=== PATIENT | female | born 1985 | race Caucasian/White ===

== ENCOUNTER 2019-03-19 12:06 | Inpatient (IN) | payer OTHER ==
--- NOTE | 2019-03-19 12:27 | PDOC ---
Rapid Medical Evaluation Chief Complaint: Pain, Acute Time Seen by Provider: 03/19/19 12:25 Medical Evaluation: Allergies Allergy/AdvReac Type Severity Reaction Status Date / Time almond Allergy Unknown Verified 03/19/19 12:24 03/19/19 12:25 I have performed a brief in-person evaluation of this patient. The patient presents with a chief complaint of: right flank with nausea and vomiting since yesterday. Took tylenol for pain w/p improvement. Say PCP yesterday who placed her on Macrobid Abx. Haven't had menses for a year due to nexplanon Pertinent physical exam findings: A&O x 3 I have ordered the following: CBC,CMP, hcg, UA, Ucx, spiral CT The patient will proceed to the ED for further evaluation. Discharge Disposition - Diagnosis Right flank pain - Discharge Dispostion Condition at time of disposition: Stable - Referrals - Patient Instructions - Post Discharge Activity
[2019-03-19] MEDS ORDERED: SODIUM CHLORIDE 1,000 ML IV STA (12:32)
--- NOTE | 2019-03-19 12:42 | PDOC ---
History of Present Illness - General Chief Complaint: Pain, Acute Stated Complaint: VOMITING Time Seen by Provider: 03/19/19 12:25 History Source: Patient Exam Limitations: No Limitations - History of Present Illness Initial Comments: 03/19/19 12:33 [id number] with h/o multiple renal stones who p/w right flank pain, nausea, and NBNB vomiting since yesterday. She notes that the pain started suddenly yesterday morning and she denies any associated dysuria. She has taken Tylenol without improvement. She saw her PCP yesterday (Dr. Huerta) who prescribed Macrobid after she had a positive UA in the presence of the flank pain/n/v. The patient additionally notes subjective fever, sweats, malaise. Denies diarrhea, constipation, white/black/bloody stool, rash, swelling, abdominal distention, inability to pass gas, chest pain, SOB, headache, lightheadedness, dizziness, etc. Past History - Past Medical History Allergies/Adverse Reactions: Allergies Allergy/AdvReac Type Severity Reaction Status Date / Time almond Allergy Unknown Verified 03/19/19 12:24 Home Medications: Ambulatory Orders NK [No Known Home Medication] 06/20/18 Asthma: Yes COPD: No Kidney Stones: Yes - Reproductive History (#): 2 Para: 0 Therapeutic (s) & number: Yes (1) - Immunization History Immunization Up to Date: Yes - Suicide/Smoking/Psychosocial Hx Smoking History: Never smoked Hx Alcohol Use: No Drug/Substance Use Hx: No Substance Use Type: None Review of Systems - Review of Systems Able to Perform ROS?: Yes Comments:: 03/19/19 13:26 GEN: fever, chills, malaise, generalized weakness, no weight change HEENT: no ear pain, sore throat, vision change, or eye pain CV: no chest pain, palpitations, lightheadedness, syncope, or edema RESP: no cough, wheezing, or SOB GI: abdominal pain, nausea, vomiting, no diarrhea, constipation, or white/black/ bloody stool : right flank pain, no dysuria, hematuria, incontinence, retention, bleeding, or discharge MSK: no neck/back pain, muscle weakness/pain, or joint swelling/pain NEURO: no headache, seizure, vertigo, numbness, tingling, or focal weakness PSYCH: no substance use, no behavior change SKIN: no jaundice, no rash ROS otherwise negative except as noted in HPI *Physical Exam - Vital Signs Last Vital Signs Temp Pulse Resp BP Pulse Ox 100.4 F H 129 H 18 107/57 L 100 03/19/19 12:24 03/19/19 12:24 03/19/19 12:24 03/19/19 12:24 03/19/19 12:24 - Physical Exam Comments: 03/19/19 13:45 GENERAL: uncomfortable appearing, splinting right flank in right hand, A/Ox4, no distress, answers questions appropriately HEENT: PERRLA, EOMI, moist mucous membranes NECK/BACK: no midline ttp, no spinal stepoff or deformity, no hematoma, full ROM , neck supple CARDIOVASCULAR: regular rate/rhythm, normal S1S2, no MGR, strong peripheral pulses, capillary refill <2 seconds, extremities wwp, no edema LUNGS/RESPIRATORY: no respiratory distress, CTAB GI/ABDOMEN: symmetric [id number], normoactive BS, soft, mild ttp RUQ, no midline pulsatile masses : right CVA tenderness EXTREMITIES: no muscle atrophy, no acute deformity SKIN: warm and dry, no pallor, no jaundice, no rash, no bruising, no skin breakdown, no cuts, no lesions NEUROLOGICAL: GCS 15, CN II-XII grossly intact, 5/5 strength proximally and distally, no facial droop Procedures - Bedside Ultrasound Remarks: POCUS studies kindly performed by Dr. Encinas. STUDY: Gallbladder INDICATION: RUQ and right flank pain, n/v FINDINGS: multiple calculi in gallbladder with varied sizes, roughly 6 total, no GB wall thickening, distention, CBD dilation, etc CONCLUSION: cholelithiasis without e/o cholecystitis or choledocholithiasis STUDY: Renal, urinary bladder INDICATION: RUQ and right flank pain, n/v FINDINGS: no hydronephrosis, no e/o stones, bladder without wall thickening CONCLUSION: normal renal/bladder ultrasound ED Treatment Course - LABORATORY CBC & Chemistry Diagram: 03/20/19 06:40 03/20/19 06:40 Medical Decision Making - Medical Decision Making 03/19/19 12:43 33YOF with h/o multiple renal stones who p/w right flank pain, n/v, x1 day similar to a prior infected renal stone. Has been on Macrobid since yesterday. Initial Vital Signs Temp Pulse Resp BP Pulse Ox 100.4 F H 129 H 18 107/57 L 100 03/19/19 12:24 03/19/19 12:24 03/19/19 12:24 03/19/19 12:24 03/19/19 12:24 Exam: As noted in Physical Exam section. DDX IBNLT: obstructive uropathy with infection, UTI/pyelonephritis, renal colic , rental artery aneurysm or dissection (juma w/ hematuria and no stone visualized on imaging), ACS, AAA/AD, pneumothorax, PE, cholecystitis, cholangitis, pancreatitis, gastritis, PUD, colitis, ruptured diverticulosis, diverticulitis wwo abscess or perforation, appendicitis, hernia, SBO, malignancy , splenic infarction, mesenteric ischemia, bowel perforation, ovarian torsion, ovarian cyst, PID, TOA, endometriosis, fibroid, musculoskeletal, constipation, etc. W/U ordered: CBCD CMP UA UCx Spiral CT EKG ordered in E. Patient has vitals concerning for sepsis. Sepsis order set ordered, 2 liters NS (and will give an additional 400cc if tolerating well). TX ordered: IVF, Ofirmev Laboratory Tests 03/19/19 03/19/19 03/19/19 12:40 12:45 13:01 WBC 17.2 H RBC 4.54 Hgb 13.0 Hct 39.8 D MCV 87.8 MCH 28.6 D MCHC 32.6 RDW 14.3 D Plt Count 168 D MPV 10.4 Absolute Neuts (auto) 14.4 H Neutrophils % 83.4 H Lymphocytes % 6.9 L D Monocytes % 9.5 Eosinophils % 0.0 D Basophils % 0.2 Nucleated RBC % 0 PT with INR 15.40 H INR 1.30 H PTT (Actin FS) 33.0 Sodium 139 Potassium 3.5 Chloride 106 Carbon Dioxide 27 Anion Gap 6 L BUN 10 Creatinine 0.7 Est GFR (CKD-EPI)AfAm 131.94 Est GFR (CKD-EPI)NonAf 113.84 Random Glucose 121 H Lactic Acid Calcium 8.6 Total Bilirubin 0.8 AST 19 ALT 27 Alkaline Phosphatase 97 Total Protein 7.2 Albumin 3.7 Serum , Qual 03/19/19 03/19/19 13:01 14:05 WBC RBC Hgb Hct MCV MCH MCHC RDW Plt Count MPV Absolute Neuts (auto) Neutrophils % Lymphocytes % Monocytes % Eosinophils % Basophils % Nucleated RBC % PT with INR INR PTT (Actin FS) Sodium Potassium Chloride Carbon Dioxide Anion Gap BUN Creatinine Est GFR (CKD-EPI)AfAm Est GFR (CKD-EPI)NonAf Random Glucose Lactic Acid 1.0 Calcium Total Bilirubin AST ALT Alkaline Phosphatase Total Protein Albumin Serum , Qual Negative CT/SPIRAL- RENAL-STONE CT Right flank pain. Rule out renal stone CT scan of the abdomen pelvis without oral and intravenous contrast Coronal and sagittal reformatted images were obtained Compared to prior CT scan of the abdomen pelvis dated 03/02/2014 and prior renal ultrasound dated The visualized lung base appears unremarkable and the heart is within normal limits in size. The liver is within normal limits in size with questionable mild fatty infiltration. Please correlate with liver enzymes. Partially distended stomach without gross wall thickening. Adequately distended gallbladder with multiple intraluminal stones the largest measuring 2.3 cm. The spleen, pancreas and both adrenal glands appear unremarkable. Both kidneys are within normal limits in size with punctate bilateral nonobstructing stones present. There is no evidence of hydroureteronephrosis or ureteral stone, bilaterally. Partially distended urinary bladder without wall thickening or layering of intraluminal stones. There is no evidence of small bowel obstruction. Normal-appearing terminal ileum and appendix. Normal stool burden in the colon without wall thickening. No free air, free fluid or enlarged lymph nodes are identified. Normal size uterus. Perirectal and pericecal fat are clear. Minimal anterolisthesis of L5 over S1 and bilateral spondylolysis of L5 pars interarticulares again seen with interval moderate degenerative disc disease. IMPRESSION: Tiny bilateral nonobstructing renal stones without evidence of hydroureteronephrosis or ureteral stone, bilaterally. Partially distended urinary bladder without wall thickening or layering stones. Multiple gallstones measuring up to 2.[address] evidence of cholecystitis. Minimal anterolisthesis of L5 over S1 with bilateral spondylolysis of the pars interarticularis again seen with interval moderate degenerative disc disease. Vital Signs Temperature 99.2 F 03/19/19 14:35 Pulse Rate 114 H 03/19/19 14:35 Respiratory Rate 20 03/19/19 14:35 Blood Pressure 99/43 L 03/19/19 14:35 O2 Sat by Pulse Oximetry (%) 99 03/19/19 14:35 The Pts symptoms persist despite ED treatments. The Pt is unsafe for discharge at this time. They require further hospital observation, workup, and treatment. 03/19/19 16:28 Microblog sent to [facility] for admission. Blank Decision to Admit order is placed per ED protocol. 03/19/19 16:58 Spoke with admitting team representative personal service Wes Farrar, in agreement Pt to be admitted. Decision to Admit order corrected with admitting team covering attendings name Dr. Moran. Patient painful again; order placed for 15 mg IV Toradol. *DC/Admit/Observation/Transfer Diagnosis at time of Disposition: Pyelonephritis Sepsis Qualifiers: Sepsis type: sepsis due to unspecified organism Qualified Code(s): A41.9 - Sepsis, unspecified organism - Discharge Dispostion Condition at time of disposition: Stable Decision to Admit order: Yes - Referrals - Patient Instructions - Post Discharge Activity
[2019-03-19 12:57] LABS: BASO % 0.2 % (0-2.0); HEMATOCRIT 39.8 % (32.4-45.2); LYMPH % 6.9 % (8-40); MCH 28.6 pg (25.7-33.7); MCHC 32.6 g/dl (32.0-36.0); MEAN CELL VOLUME 87.8 fl (80-96); MEAN PLT VOLUME 10.4 fl (7.5-11.1); MONO % 9.5 % (3.8-10.2); NEUT % 83.4 % (42.8-82.8); RBC 4.54 M/mm3 (3.60-5.2); RDW 14.3 % (11.6-15.6); WHITE BLOOD COUNT 17.2 K/mm3 (4.0-10.0)
[2019-03-19] MEDS ORDERED: SODIUM CHLORIDE 0.9% 500 ML INFUS.BAG IV ONE (12:57)
[2019-03-19] MEDS ORDERED: CEFTRIAXONE 1,000 MG in DEXTROSE 5%-WATER - 50 ML IVPB ONE (13:03)
[2019-03-19] MEDS ORDERED: ACETAMINOPHEN 1000 MG/100 ML VIAL (NON FORMULARY) IVPB ONE (13:06)
[2019-03-19] MEDS ORDERED: ACETAMINOPHEN INJECTION 100 ML IVPB ONE (13:06)
[2019-03-19] MEDS ORDERED: CEFTRIAXONE 1 GM/50 ML BAG ONE (13:06)
[2019-03-19 13:27] LABS: ALBUMIN 3.7 g/dl (3.4-5.0); BILIRUBIN,TOTAL 0.8 mg/dL (0.2-1); CALCIUM 8.6 mg/dL (8.5-10.1); CREATININE 0.7 mg/dL (0.55-1.3); POTASSIUM 3.5 mmol/L (3.5-5.1); TOT PROT 7.2 g/dl (6.4-8.2)
[2019-03-19 13:53] LABS: PLATELET COUNT 168 K/MM3 (134-434)
[2019-03-19 13:56] LABS: INR 1.3 (0.83-1.09); PROTHROMBIN TIME (PATIENT) 15.4 SEC (9.7-13.0)
--- NOTE | 2019-03-19 14:38 | PDOC ---
Documentation entered by Evie Schulte SCRIBE, acting as scribe for Olive Alcantara MD. Olive Alcantara MD: This documentation has been prepared by the Franca mason Xhesika, SCRIBE, under my direction and personally reviewed by me in its entirety. I confirm that the documentation accurately reflects all work, treatment, procedures, and medical decision making performed by me. Attending Attestation - Resident Resident Name: Carole Uribe - ED Attending Attestation I have performed the following: I have examined & evaluated the patient, The case was reviewed & discussed with the resident, I agree w/resident's findings & plan, Exceptions are as noted - HPI HPI: 03/19/19 13:42 The patient is a 33 year old female, with a significant PMH of renal stones, gallstones and Asthma who presents to the emergency department with 1 day of sudden onset R sided flank pain, vomiting, and nausea. The patient states she has taken Tylenol, with no relief. The patient states she saw her PCP, Dr. Huerta yesterday, was diagnosed with pyelo and was prescribed Macrobid. The patient states she is endorsing abdominal pain, subjective fevers, sweats, generalized weakness and malaise, secondary to her symptoms. The patient denies chest pain, shortness of breath, headache and dizziness. Denies diarrhea and constipation. Denies dysuria, frequency, urgency and hematuria. Allergies: NKDA. [place]. PCP: Dr. Huerta - Physicial Exam PE: GENERAL: Awake, alert, and fully oriented, in no acute distress. Appears ill but nontoxic HEAD: No signs of trauma EYES: PERRLA, EOMI, sclera anicteric, conjunctiva clear ENT: Auricles normal inspection, hearing grossly normal, nares patent, oropharynx clear without exudates. Dry mucosa NECK: Normal ROM, supple, no lymphadenopathy, JVD, or masses LUNGS: Breath sounds equal, clear to auscultation bilaterally. No wheezes, and no crackles HEART: Regular rate and rhythm, normal S1 and S2, no murmurs, rubs or gallops ABDOMEN: Soft, +R mid-abdominal and R CVAT, +hyperactive bowel sounds. No guarding, no rebound. No masses EXTREMITIES: Normal range of motion, no edema. No clubbing or cyanosis. No cords, erythema, or tenderness NEUROLOGICAL: Cranial nerves II through XII grossly intact. Normal speech, normal gait. Motor and sensation intact SKIN: Warm, Dry, normal turgor, no rashes or lesions noted. - Medical Decision Making Pt with R flank and mid-abdominal pain, fever, vomiting. History of prior kidney stones. DDx includes pyelonephritis, infected stone. Will obtain labs, urine, and CT.
[2019-03-19 15:57] LABS: HCG,QUALITATIVE URINE Negative
[2019-03-19 15:59] LABS: EPI CELLS 2.2 /HPF (0-5/HPF); HYALINE CASTS 18 /lpf (0-8); PH,URINE 6.5 (5.0-8.0); URINE APPEARANCE CLEAR; URINE BACTERIA 161.7 /hpf (NEGATIVE); URINE BILIRUBIN NEGATIVE (NEGATIVE); URINE COLOR DK YELLOW; URINE GLUCOSE (UA) NEGATIVE (NEGATIVE); URINE KETONE TRACE (NEGATIVE); URINE LEUK ESTERASE TRACE (NEGATIVE); URINE NITRITE NEGATIVE (NEGATIVE); URINE PROTEIN 2+ (NEGATIVE); URINE RBC 49 /hpf (0-4); URINE WBC 30 /hpf (0-5)
[2019-03-19] MEDS ORDERED: KETOROLAC TROMETHAMINE 30 MG/1 ML VIAL IVPUSH ONE (17:01)
[2019-03-19] MEDS ORDERED: KETOROLAC TROMETHAMINE 15 MG/ML VIAL ONE (17:03)
--- NOTE | 2019-03-19 18:27 | PN ---
Progress Note, Physician Chief Complaint: right flank pain, fevers, chills x 1 day History of Present Illness: 03/19/19 13:42 The patient is a 33 year old female, with a significant PMH of renal stones, gallstones and Asthma who presents to the emergency department with 1 day of sudden onset R sided flank pain, vomiting, and nausea. The patient states she has taken Tylenol, with no relief. The patient states she saw her PCP, Dr. Huerta yesterday, was diagnosed with pyelo and was prescribed Macrobid. The patient states she is endorsing abdominal pain, subjective fevers, sweats, generalized weakness and malaise, secondary to her symptoms. The patient denies chest pain, shortness of breath, headache and dizziness. Denies diarrhea and constipation. Denies dysuria, frequency, urgency and hematuria. - Current Medication List Current Medications: Active Medications Acetaminophen (Tylenol -) 650 mg PO Q4H PRN PRN Reason: FEVER Ceftriaxone Sodium 1 gm/ (Dextrose) 50 mls @ 100 mls/hr IVPB DAILY SRIRAM; Protocol Ketorolac Tromethamine (Toradol Injection -) 15 mg IVPUSH Q6H PRN PRN Reason: PAIN LEVEL 6-10 Stop: 03/24/19 18:02 - Objective Vital Signs: Vital Signs Temperature 98.3 F 03/19/19 14:51 Pulse Rate 114 H 03/19/19 14:51 Respiratory Rate 22 H 03/19/19 14:51 Blood Pressure 110/71 03/19/19 14:51 O2 Sat by Pulse Oximetry (%) 100 03/19/19 14:51 Constitutional: Yes: Well Nourished, Moderate Distress Eyes: Yes: WNL, Conjunctiva Clear, EOM Intact HENT: Yes: WNL, Atraumatic, Normocephalic Neck: Yes: WNL, Supple, Trachea Midline Cardiovascular: Yes: WNL, Regular Rate and Rhythm Respiratory: Yes: WNL, Regular, CTA Bilaterally Gastrointestinal: Yes: WNL, Normal Bowel Sounds ...Rectal Exam: Yes: Deferred Genitourinary: Yes: CVA Tenderness - Right, Polyuria Musculoskeletal: Yes: Back Pain Extremities: Yes: WNL Edema: No Peripheral Pulses WNL: Yes Integumentary: Yes: WNL Neurological: Yes: WNL, Alert, Oriented ...Motor Strength: WNL Psychiatric: Yes: WNL, Alert, Oriented Labs: CBC, BMP 03/19/19 12:45 03/19/19 12:40 INR, PTT INR 1.30 (0.83-1.09) H 03/19/19 13:01 - ....Imaging Chest X-ray: Report Reviewed, Image Reviewed Cat Scan: Report Reviewed, Image Reviewed (CT ABD: Tiny bilateral nonobstructing renal stones without evidence of hydroureteronephrosis or ureteral stone, bilaterally. Partially distended urinary bladder without wall thickening or layering stones. Multiple gallstones measuring up to 2.[address] evidence of cholecystitis. Minimal anterolisthesis of L5 over S1 with bilateral spondylolysis of the pars interarticularis again seen with interval moderate degenerative disc disease.) Problem List - Problems (1) Pyelonephritis Code(s): N12 - TUBULO-INTERSTITIAL NEPHRITIS, NOT SPCF ACUTE OR CHRONIC (2) UTI (urinary tract infection) Code(s): N39.0 - URINARY TRACT INFECTION, SITE NOT SPECIFIED (3) Sepsis Code(s): A41.9 - SEPSIS, UNSPECIFIED ORGANISM Qualifiers: Sepsis type: sepsis due to unspecified organism Qualified Code(s): A41.9 - Sepsis, unspecified organism (4) Prophylactic measure Code(s): Z29.9 - ENCOUNTER FOR PROPHYLACTIC MEASURES, UNSPECIFIED Visit type - Emergency Visit Emergency Visit: Yes ED Registration Date: 03/19/19 Care time: The patient presented to the Emergency Department on the above date and was hospitalized for further evaluation of their emergent condition. - New Patient This patient is new to me today: Yes Date on this admission: 03/19/19 - Critical Care Critical Care patient: No - Discharge Referral Referred to [facility] Med P.C.: No
[2019-03-19 18:28] VITALS: BMI 31.3
--- NOTE | 2019-03-19 18:52 | HP ---
Admitting History and Physical - Primary Care Physician PCP: laura - Admission Chief Complaint: right flank pain, fever chills History of Present Illness: 03/19/19 13:42 The patient is a 33 year old female, with a significant PMH of renal stones, gallstones and Asthma who presents to the emergency department with 1 day of sudden onset R sided flank pain, vomiting, and nausea. The patient states she has taken Tylenol, with no relief. The patient states she saw her PCP, Dr. Huerta yesterday, was diagnosed with pyelo and was prescribed Macrobid. The patient states she is endorsing abdominal pain, subjective fevers, sweats, generalized weakness and malaise, secondary to her symptoms. The patient denies chest pain, shortness of breath, headache and dizziness. Denies diarrhea and constipation. Denies dysuria, frequency, urgency and hematuria. History Source: Patient Limitations to Obtaining History: No Limitations - Past Medical History Renal/: Yes: Renal Calculi, UTI ...: No ...: 2 ...Para: 2 - Past Surgical History Additional Past Surgical History: cosmetic facial surgery - Smoking History Smoking history: Never smoked - Alcohol/Substance Use Hx Alcohol Use: No History of Substance Use: reports: None - Social History Usual Living Arrangement: Yes: With Spouse History of Recent Travel: No Home Medications - Allergies Allergies/Adverse Reactions: Allergies Allergy/AdvReac Type Severity Reaction Status Date / Time almond Allergy Unknown Verified 03/19/19 12:24 - Home Medications Home Medications: Ambulatory Orders NK [No Known Home Medication] 06/20/18 Family Disease History - Family Disease History Family History: Unable to Obtain (due to pain) Review of Systems - Review of Systems Constitutional: reports: Chills, Fever, Loss of Appetite Eyes: reports: No Symptoms HENT: reports: No Symptoms Neck: reports: No Symptoms Cardiovascular: reports: No Symptoms Respiratory: reports: No Symptoms Gastrointestinal: reports: Abdominal Pain (pelvic) Genitourinary: reports: Dysuria, Frequency Breasts: reports: No Symptoms Reported Musculoskeletal: reports: No Symptoms Integumentary: reports: No Symptoms Neurological: reports: No Symptoms Endocrine: reports: No Symptoms Hematology/Lymphatic: reports: No Symptoms Psychiatric: reports: No Symptoms Pain Intensity: 8 Physical Examination Vital Signs: Vital Signs Temperature 98.1 F 03/19/19 18:10 Pulse Rate 110 H 03/19/19 18:10 Respiratory Rate 18 03/19/19 18:10 Blood Pressure 108/58 L 03/19/19 18:10 O2 Sat by Pulse Oximetry (%) 95 03/19/19 18:30 Constitutional: Yes: Well Nourished, Moderate Distress Eyes: Yes: WNL, Conjunctiva Clear, EOM Intact HENT: Yes: WNL, Atraumatic, Normocephalic Neck: Yes: WNL, Supple, Trachea Midline Cardiovascular: Yes: WNL, Regular Rate and Rhythm, Tachycardia Respiratory: Yes: WNL, Regular, CTA Bilaterally Gastrointestinal: Yes: WNL, Normal Bowel Sounds, Soft ...Rectal Exam: Yes: Deferred Renal/: Yes: CVA Tenderness - Right Musculoskeletal: Yes: WNL, Back Pain (right flank) Extremities: Yes: WNL Edema: No Integumentary: Yes: WNL Neurological: Yes: WNL, Alert, Oriented ...Motor Strength: WNL Psychiatric: Yes: WNL, Alert, Oriented Labs: CBC, BMP 03/19/19 12:45 03/19/19 12:40 Imaging - Results Cat Scan: Report Reviewed (IMPRESSION: Tiny bilateral nonobstructing renal stones without evidence of hydroureteronephrosis or ureteral stone, bilaterally. Partially distended urinary bladder without wall thickening or layering stones. Multiple gallstones measuring up to 2.[address] evidence of cholecystitis. Minimal anterolisthesis of L5 over S1 with bilateral spondylolysis of the pars interarticularis again seen with interval moderate degenerative disc disease.), Image Reviewed (STUDY: Gallbladder INDICATION: RUQ and right flank pain, n/v FINDINGS: multiple calculi in gallbladder with varied sizes, roughly 6 total, no GB wall thickening, distention, CBD dilation, etc CONCLUSION: cholelithiasis without e/o cholecystitis or choledocholithiasis STUDY: Renal, urinary bladder INDICATION: RUQ and right flank pain, n/v FINDINGS : no hydronephrosis, no e/o stones, bladder without wall thickening CONCLUSION: normal renal/bladder ultrasound) Ultrasound: Report Reviewed Problem List - Problems (1) Pyelonephritis Assessment/Plan: Tiny bilateral nonobstructing renal stones without evidence of hydroureteronephrosis or ureteral stone, bilaterally seen on CT change home ABX to Cetriaxone for at least 48 from being AF urine culture pending toradol for pain for max of 6 doses consult ID if culture grow or remains to be febrile on ceftrxone Code(s): N12 - TUBULO-INTERSTITIAL NEPHRITIS, NOT SPCF ACUTE OR CHRONIC (2) UTI (urinary tract infection) Assessment/Plan: dc macrobid that can started pre-admission urine Cx pending UA WBC 30, leuk trace, nit neg Code(s): N39.0 - URINARY TRACT INFECTION, SITE NOT SPECIFIED (3) Sepsis Assessment/Plan: Pt hypotensive upon arrival to ED. Responding to 2L NS Blood cx /Urine CX send and will follow LA sent and will trend ABX started in ED and will continue Code(s): A41.9 - SEPSIS, UNSPECIFIED ORGANISM Qualifiers: Sepsis type: sepsis due to unspecified organism Qualified Code(s): A41.9 - Sepsis, unspecified organism (4) Prophylactic measure Assessment/Plan: FEN regular diet monitor electrolytes IVF if continues to be febrile DISPO maintain as in patient full code discharge planning Code(s): Z29.9 - ENCOUNTER FOR PROPHYLACTIC MEASURES, UNSPECIFIED Visit type - Emergency Visit Emergency Visit: Yes ED Registration Date: 03/19/19 Care time: The patient presented to the Emergency Department on the above date and was hospitalized for further evaluation of their emergent condition. - New Patient This patient is new to me today: Yes Date on this admission: 03/20/19 - Critical Care Critical Care patient: No
[2019-03-19 19:29] LABS: BASO % 0.3 % (0-2.0); EOS % 0.3 % (0-4.5); HEMATOCRIT 36.4 % (32.4-45.2); LYMPH % 8.7 % (8-40); MCH 28.8 pg (25.7-33.7); MEAN CELL VOLUME 87.3 fl (80-96); MEAN PLT VOLUME 10.9 fl (7.5-11.1); NEUT % 80.7 % (42.8-82.8); RBC 4.17 M/mm3 (3.60-5.2); RDW 14.4 % (11.6-15.6); WHITE BLOOD COUNT 15.6 K/mm3 (4.0-10.0)
[2019-03-19 19:58] LABS: ALBUMIN 3.2 g/dl (3.4-5.0); BILIRUBIN,TOTAL 0.7 mg/dL (0.2-1); CALCIUM 7.9 mg/dL (8.5-10.1); CREATININE 0.6 mg/dL (0.55-1.3); POTASSIUM 3.4 mmol/L (3.5-5.1); TOT PROT 6.3 g/dl (6.4-8.2)
[2019-03-19] MEDS: SODIUM CHLORIDE 1,000 ML IV SCH (20:40)
[2019-03-19] MEDS: ACETAMINOPHEN 325 MG TABLET (FP) PO PRN (20:41)
[2019-03-19 21:54] LABS: PLATELET COUNT 162 K/MM3 (134-434); PLATELET ESTIMATE ADEQUATE
[2019-03-19] MEDS: ONDANSETRON 4 MG/2 ML VIAL IVPUSH PRN (22:41)
[2019-03-20] MEDS: KETOROLAC TROMETHAMINE 15 MG/ML VIAL IVPUSH PRN ×3 (02:39→22:41)
[2019-03-20] MEDS: ACETAMINOPHEN 325 MG TABLET (FP) PO PRN ×2 (06:54→15:15)
[2019-03-20] MEDS: ONDANSETRON 4 MG/2 ML VIAL IVPUSH PRN (06:55)
--- NOTE | 2019-03-20 07:48 | PN ---
Progress Note, Physician Chief Complaint: right flank pain, fevers History of Present Illness: The patient is a 33 year old female, with a significant PMH of renal stones, gallstones and Asthma who presents to the emergency department with 1 day of sudden onset R sided flank pain, vomiting, and nausea. The patient states she has taken Tylenol, with no relief. The patient states she saw her PCP, Dr. Huerta was diagnosed with pyelo and was prescribed Macrobid. The patient states she is endorsing abdominal pain, subjective fevers, sweats, generalized weakness and malaise, secondary to her symptoms. - Current Medication List Current Medications: Active Medications Acetaminophen (Tylenol -) 650 mg PO Q4H PRN PRN Reason: FEVER Last Admin: 03/20/19 06:54 Dose: 650 mg Ceftriaxone Sodium 1 gm/ (Dextrose) 50 mls @ 100 mls/hr IVPB DAILY SRIRAM; Protocol Sodium Chloride (Normal Saline -) 1,000 mls @ 75 mls/hr IV ASDIR SRIRAM Last Admin: 03/19/19 20:40 Dose: 75 mls/hr Ketorolac Tromethamine (Toradol Injection -) 15 mg IVPUSH Q6H PRN PRN Reason: PAIN LEVEL 6-10 Stop: 03/24/19 18:02 Last Admin: 03/20/19 02:39 Dose: 15 mg Ondansetron HCl (Zofran Injection) 4 mg IVPUSH Q6H PRN PRN Reason: NAUSEA Last Admin: 03/20/19 06:55 Dose: 4 mg - Objective Vital Signs: Vital Signs Temperature 99.1 F 03/20/19 06:00 Pulse Rate 111 H 03/20/19 06:00 Respiratory Rate 18 03/20/19 06:00 Blood Pressure 114/45 L 03/20/19 06:00 O2 Sat by Pulse Oximetry (%) 100 03/19/19 21:00 Constitutional: Yes: Well Nourished, Mild Distress (secondary to pain) Eyes: Yes: WNL, Conjunctiva Clear, EOM Intact HENT: Yes: WNL, Atraumatic, Normocephalic Neck: Yes: WNL, Supple, Trachea Midline Cardiovascular: Yes: WNL, Regular Rate and Rhythm Respiratory: Yes: WNL, Regular, CTA Bilaterally Gastrointestinal: Yes: WNL, Normal Bowel Sounds, Soft, Vomiting ...Rectal Exam: Yes: Deferred Genitourinary: Yes: CVA Tenderness - Right Musculoskeletal: Yes: WNL Extremities: Yes: WNL Edema: No Integumentary: Yes: WNL Neurological: Yes: WNL, Alert, Oriented ...Motor Strength: WNL Psychiatric: Yes: WNL, Alert, Oriented Labs: INR, PTT INR 1.30 (0.83-1.09) H 03/19/19 13:01 - ....Imaging Cat Scan: Report Reviewed ( (IMPRESSION: Tiny bilateral nonobstructing renal stones without evidence of hydroureteronephrosis or ureteral stone, bilaterally. Partially distended urinary bladder without wall thickening or layering stones. Multiple gallstones measuring up to 2.[address] evidence of cholecystitis. Minimal anterolisthesis of L5 over S1 with bilateral spondylolysis of the pars interarticularis again seen with interval moderate degenerative disc disease.), Image Reviewed (STUDY: Gallbladder INDICATION: RUQ and right flank pain, n/v FINDINGS: multiple calculi in gallbladder with varied sizes, roughly 6 total, no GB wall thickening, distention, CBD dilation, etc CONCLUSION: cholelithiasis without e/o cholecystitis or choledocholithiasis STUDY: Renal, urinary bladder INDICATION: RUQ and right flank pain, n/v FINDINGS : no hydronephrosis, no e/o stones, bladder without wall thickening CONCLUSION: normal renal/bladder ultrasound) Ultrasound: Report Reviewed) Ultrasound: Report Reviewed ( STUDY: Renal, urinary bladder INDICATION: RUQ and right flank pain, n/v FINDINGS: no hydronephrosis, no e/o stones, bladder without wall thickening CONCLUSION: normal renal/bladder ultrasound) Ultrasound : Report Reviewed) Problem List - Problems (1) Pyelonephritis Assessment/Plan: Tiny bilateral nonobstructing renal stones without evidence of hydroureteronephrosis or ureteral stone, bilaterally seen on CT change home ABX to Cetriaxone for at least 48 from being AF urine culture pending toradol for pain for max of 6 doses consult ID if culture grow or remains to be febrile on ceftrxone Code(s): N12 - TUBULO-INTERSTITIAL NEPHRITIS, NOT SPCF ACUTE OR CHRONIC (2) UTI (urinary tract infection) Assessment/Plan: dc macrobid that can started pre-admission urine Cx pending UA WBC 30, leuk trace, nit neg Code(s): N39.0 - URINARY TRACT INFECTION, SITE NOT SPECIFIED (3) Sepsis Assessment/Plan: Pt hypotensive upon arrival to ED. Responding to 2L NS Blood cx /Urine CX send and will follow LA sent and will trend ABX started in ED and will continue Pt spike lew 101-will place consult for ID to evaluate Small no obstructive biliary stones seen-repeat abd ultrasound to see if ducts are obstructed and cause of fevers No acute cholecyctitis seen previously Code(s): A41.9 - SEPSIS, UNSPECIFIED ORGANISM Qualifiers: Sepsis type: sepsis due to unspecified organism Qualified Code(s): A41.9 - Sepsis, unspecified organism (4) Prophylactic measure Assessment/Plan: FEN regular diet monitor electrolytes IVF if continues to be febrile DISPO maintain as in patient full code discharge planning Code(s): Z29.9 - ENCOUNTER FOR PROPHYLACTIC MEASURES, UNSPECIFIED Visit type - Emergency Visit Emergency Visit: Yes ED Registration Date: 03/19/19 Care time: The patient presented to the Emergency Department on the above date and was hospitalized for further evaluation of their emergent condition. - New Patient This patient is new to me today: No - Critical Care Critical Care patient: No - Discharge Referral Referred to [facility] Med P.C[facility] No
[2019-03-20 07:51] LABS: BASO % 0.2 % (0-2.0); EOS % 0.5 % (0-4.5); HEMOGLOBIN 11.4 GM/dL (10.7-15.3); LYMPH % 11.7 % (8-40); MCH 29.2 pg (25.7-33.7); MCHC 33.5 g/dl (32.0-36.0); MEAN CELL VOLUME 87.1 fl (80-96); MEAN PLT VOLUME 10.5 fl (7.5-11.1); MONO % 10.7 % (3.8-10.2); NEUT % 76.9 % (42.8-82.8); PLATELET COUNT 159 K/MM3 (134-434); RBC 3.91 M/mm3 (3.60-5.2); RDW 14.2 % (11.6-15.6); WHITE BLOOD COUNT 13.3 K/mm3 (4.0-10.0)
[2019-03-20 07:58] LABS: ALBUMIN 2.9 g/dl (3.4-5.0); BILIRUBIN,TOTAL 0.7 mg/dL (0.2-1); BLOOD UREA NITROGEN 8.5 mg/dL (7-18); CALCIUM 7.4 mg/dL (8.5-10.1); CREATININE 0.6 mg/dL (0.55-1.3); MAGNESIUM 2.1 mg/dL (1.8-2.4); POTASSIUM 3.6 mmol/L (3.5-5.1)
[2019-03-20 08:10] LABS: INR 1.29 (0.83-1.09); PROTHROMBIN TIME (PATIENT) 15.3 SEC (9.7-13.0)
--- NOTE | 2019-03-20 08:41 | EKG ---
Test Reason : Blood Pressure : / mmHG Vent. Rate : 123 BPM Atrial Rate : 123 BPM P-R Int : 120 ms QRS Dur : 074 ms QT Int : 294 ms P-R-T Axes : 036 024 033 degrees QTc Int : 420 ms SINUS TACHYCARDIA OTHERWISE NORMAL ECG NO PREVIOUS ECGS AVAILABLE Confirmed by CARLOS MORALES MD ([id number]) on 03/20/2019 8:41:30 AM Referred By: Confirmed By:CARLOS MORALES MD
[2019-03-20] MEDS ORDERED: DEXTROSE 5%-WATER - 50 ML IVPB ONE (09:07)
[2019-03-20] MEDS ORDERED: cefTRIAXone SODIUM 1 GM VIAL ONE (09:07)
[2019-03-20] MEDS: CEFTRIAXONE 1 GM in DEXTROSE 5%-WATER - 50 ML IVPB SCH (09:09)
[2019-03-20] MEDS: SODIUM CHLORIDE 1,000 ML IV SCH (11:04)
[2019-03-20] MEDS ORDERED: SIMETHICONE 80 MG TAB.CHEW (FP) PO PRN (15:18)
[2019-03-21] MEDS: SODIUM CHLORIDE 1,000 ML IV SCH ×2 (05:09→23:21)
[2019-03-21] MEDS: KETOROLAC TROMETHAMINE 15 MG/ML VIAL IVPUSH PRN ×2 (05:11→11:54)
[2019-03-21 07:35] LABS: BASO % 0.5 % (0-2.0); EOS % 0.7 % (0-4.5); HEMATOCRIT 33.3 % (32.4-45.2); HEMOGLOBIN 11.2 GM/dL (10.7-15.3); LYMPH % 10.3 % (8-40); MCH 29.4 pg (25.7-33.7); MCHC 33.5 g/dl (32.0-36.0); MEAN CELL VOLUME 87.6 fl (80-96); MEAN PLT VOLUME 11.1 fl (7.5-11.1); MONO % 8.3 % (3.8-10.2); NEUT % 80.2 % (42.8-82.8); RDW 14.2 % (11.6-15.6); WHITE BLOOD COUNT 9.5 K/mm3 (4.0-10.0)
[2019-03-21 07:52] LABS: AMYLASE 27 U/L (25-115); LIPASE 66 U/L (73-393)
[2019-03-21 07:55] LABS: ALBUMIN 2.8 g/dl (3.4-5.0); BILIRUBIN,TOTAL 0.5 mg/dL (0.2-1); BLOOD UREA NITROGEN 5.9 mg/dL (7-18); CALCIUM 7.8 mg/dL (8.5-10.1); CREATININE 0.5 mg/dL (0.55-1.3); MAGNESIUM 2.1 mg/dL (1.8-2.4); POTASSIUM 3.6 mmol/L (3.5-5.1); TOT PROT 6.1 g/dl (6.4-8.2)
--- NOTE | 2019-03-21 08:07 | PN ---
Progress Note, Physician Chief Complaint: Feels improved no fever or chills - Current Medication List Current Medications: Active Medications Acetaminophen (Tylenol -) 650 mg PO Q4H PRN PRN Reason: FEVER Last Admin: 03/20/19 15:15 Dose: 650 mg Ceftriaxone Sodium 1 gm/ (Dextrose) 50 mls @ 100 mls/hr IVPB DAILY SRIRAM; Protocol Last Admin: 03/20/19 09:09 Dose: 100 mls/hr Sodium Chloride (Normal Saline -) 1,000 mls @ 75 mls/hr IV ASDIR SRIRAM Last Admin: 03/21/19 05:09 Dose: 75 mls/hr Ketorolac Tromethamine (Toradol Injection -) 15 mg IVPUSH Q6H PRN PRN Reason: PAIN LEVEL 6-10 Stop: 03/24/19 18:02 Last Admin: 03/21/19 05:11 Dose: 15 mg Ondansetron HCl (Zofran Injection) 4 mg IVPUSH Q6H PRN PRN Reason: NAUSEA Last Admin: 03/20/19 06:55 Dose: 4 mg Simethicone (Mylicon -) 80 mg PO Q4H PRN PRN Reason: GAS Last Admin: 03/20/19 16:41 Dose: 80 mg - Objective Vital Signs: Vital Signs Temperature 99.5 F 03/21/19 06:23 Pulse Rate 92 H 03/21/19 02:00 Respiratory Rate 20 03/21/19 02:00 Blood Pressure 104/52 L 03/21/19 02:00 O2 Sat by Pulse Oximetry (%) 99 03/20/19 21:00 Young F comfortable afebrile, HEENT:mm moist, no anemia, PERRLA EOMI NECK:No JVd No Bruit CHEST: CTA B/L CVS: S1S2 R ABD:No distention, non tender, BS + EXT:NO edema feet, no calf tenderness SAFETY SPEC:AOX3 non focal Labs: CBC, BMP 03/21/19 06:40 03/21/19 06:40 Problem List - Problems (1) Hydroureter on right Assessment/Plan: Most likely passed stone cont Po Hydration Ct shows 2 mm non obstructing stone. Code(s): N13.4 - HYDROURETER (2) Renal colic on right side Code(s): N23 - UNSPECIFIED RENAL COLIC (3) Sepsis Assessment/Plan: On IV Ceftriaxone so far U culture -ve will switch to PO Levofloxacin Code(s): A41.9 - SEPSIS, UNSPECIFIED ORGANISM Qualifiers: Sepsis type: sepsis due to unspecified organism Qualified Code(s): A41.9 - Sepsis, unspecified organism (4) Hepatic hemangioma Assessment/Plan: F/U as out patient Code(s): D18.03 - HEMANGIOMA OF INTRA-ABDOMINAL STRUCTURES
[2019-03-21] MEDS ORDERED: DEXTROSE 5%-WATER - 50 ML IVPB ONE (10:22)
[2019-03-21] MEDS ORDERED: cefTRIAXone SODIUM 1 GM VIAL ONE (10:22)
[2019-03-21] MEDS: CEFTRIAXONE 1 GM in DEXTROSE 5%-WATER - 50 ML IVPB SCH (10:52)
[2019-03-21 13:41] LABS: PLATELET COUNT 250 K/MM3 (134-434)
--- NOTE | 2019-03-21 13:56 | CON.ID ---
Consult - History of Present Illness History of Present Illness: 33 y.o. female with PMH of nephrolithiasis, previous UTIs, cholelithiasis, and asthma presents with c/o severe Rt lower abd/flank pain (10/10 intensity) and hematuria that began 3 days ago suddenly. Was started on macrobid as outpt but was having severe intermittent pain. Reports episodes of n/v and had been having chills. In the ER pt was noted to have temp of 102.8F and elevated wbc ( 17.2K) and CT A/P with non-obstructing renal stone. Currently she states she is feeling better, pain is better controlled with Toradol. Earlier had 7/10 intensity pain. Hematuria is resolving. - History Source History Provided By: Patient Limitations to Obtaining History: No Limitations - Past Medical History Renal/: Yes: Renal Calculi, UTI ...: No - Alcohol/Substance Use Hx Alcohol Use: No History of Substance Use: reports: None - Smoking History Smoking history: Never smoked - Social History History of Recent Travel: No Home Medications - Allergies Allergies/Adverse Reactions: Allergies Allergy/AdvReac Type Severity Reaction Status Date / Time almond Allergy Unknown Verified 03/19/19 12:24 - Home Medications Home Medications: Ambulatory Orders NK [No Known Home Medication] 06/20/18 Review of Systems - Review of Systems Constitutional: reports: No Symptoms Eyes: reports: No Symptoms HENT: reports: No Symptoms Neck: reports: No Symptoms Cardiovascular: reports: No Symptoms Respiratory: reports: No Symptoms Gastrointestinal: reports: No Symptoms Genitourinary: reports: Other (Rt lower abd pain) Integumentary: reports: No Symptoms Neurological: reports: No Symptoms Pain Intensity: 0 Physical Exam Vital Signs: Vital Signs Temperature 98.5 F 03/21/19 09:10 Pulse Rate 98 H 03/21/19 09:10 Respiratory Rate 17 03/21/19 09:10 Blood Pressure 122/73 03/21/19 09:10 O2 Sat by Pulse Oximetry (%) 100 03/21/19 09:10 Constitutional: Yes: No Distress, Calm Cardiovascular: Yes: Tachycardia Respiratory: Yes: CTA Bilaterally Gastrointestinal: Yes: Normal Bowel Sounds, Soft, Tenderness (Rt sided abd pain extending towards groin) Extremities: Yes: WNL Integumentary: Yes: WNL Neurological: Yes: Alert Labs: CBC, BMP 03/21/19 06:40 03/21/19 06:40 Laboratory Tests 03/19/19 03/19/19 03/19/19 12:40 12:45 13:01 WBC 17.2 H RBC 4.54 Hgb 13.0 Hct 39.8 D MCV 87.8 MCH 28.6 D MCHC 32.6 RDW 14.3 D Plt Count 168 D MPV 10.4 Absolute Neuts (auto) 14.4 H Neutrophils % 83.4 H Lymphocytes % 6.9 L D Monocytes % 9.5 Eosinophils % 0.0 D Basophils % 0.2 Nucleated RBC % 0 Platelet Estimate Platelet Comment PT with INR 15.40 H INR 1.30 H PTT (Actin FS) 33.0 Sodium 139 Potassium 3.5 Chloride 106 Carbon Dioxide 27 Anion Gap 6 L BUN 10 Creatinine 0.7 Est GFR (CKD-EPI)AfAm 131.94 Est GFR (CKD-EPI)NonAf 113.84 Random Glucose 121 H Lactic Acid Calcium 8.6 Magnesium Total Bilirubin 0.8 AST 19 ALT 27 Alkaline Phosphatase 97 Total Protein 7.2 Albumin 3.7 Total Amylase Lipase Serum , Qual Urine Color Urine Appearance Urine pH Ur Specific Parkin Urine Protein Urine Glucose (UA) Urine Ketones Urine Blood Urine Nitrite Urine Bilirubin Urine Urobilinogen Ur Leukocyte Esterase Urine WBC (Auto) Urine RBC (Auto) Urine Casts (Auto) U Epithel Cells (Auto) Urine Bacteria (Auto) Urine HCG, Qual 03/19/19 03/19/19 03/19/19 13:01 14:05 15:35 WBC RBC Hgb Hct MCV MCH MCHC RDW Plt Count MPV Absolute Neuts (auto) Neutrophils % Lymphocytes % Monocytes % Eosinophils % Basophils % Nucleated RBC % Platelet Estimate Platelet Comment PT with INR INR PTT (Actin FS) Sodium Potassium Chloride Carbon Dioxide Anion Gap BUN Creatinine Est GFR (CKD-EPI)AfAm Est GFR (CKD-EPI)NonAf Random Glucose Lactic Acid 1.0 Calcium Magnesium Total Bilirubin AST ALT Alkaline Phosphatase Total Protein Albumin Total Amylase Lipase Serum , Qual Negative Urine Color Dk yellow Urine Appearance Clear Urine pH 6.5 Ur Specific Parkin 1.037 H Urine Protein 2+ H Urine Glucose (UA) Negative Urine Ketones Trace H Urine Blood 2+ H Urine Nitrite Negative Urine Bilirubin Negative Urine Urobilinogen 1.0 Ur Leukocyte Esterase Trace Urine WBC (Auto) 30 Urine RBC (Auto) 49 Urine Casts (Auto) 18 U Epithel Cells (Auto) 2.2 Urine Bacteria (Auto) 161.7 Urine HCG, Qual Negative 03/19/19 03/19/19 03/20/19 18:35 18:35 06:40 WBC 15.6 H 13.3 H RBC 4.17 3.91 Hgb 12.0 11.4 Hct 36.4 34.0 MCV 87.3 87.1 MCH 28.8 29.2 MCHC 33.0 33.5 RDW 14.4 14.2 Plt Count 162 159 MPV 10.9 10.5 Absolute Neuts (auto) 12.6 H 10.3 H Neutrophils % 80.7 76.9 Lymphocytes % 8.7 D 11.7 D Monocytes % 10.0 10.7 H Eosinophils % 0.3 D 0.5 Basophils % 0.3 0.2 Nucleated RBC % 0 0 Platelet Estimate Adequate Platelet Comment Scanned PT with INR INR PTT (Actin FS) Sodium 141 Potassium 3.4 L Chloride 111 H Carbon Dioxide 23 Anion Gap 7 L BUN 9.0 Creatinine 0.6 Est GFR (CKD-EPI)AfAm 138.80 Est GFR (CKD-EPI)NonAf 119.76 Random Glucose 103 Lactic Acid Calcium 7.9 L Magnesium 2.0 Total Bilirubin 0.7 AST 14 L ALT 23 Alkaline Phosphatase 84 Total Protein 6.3 L Albumin 3.2 L Total Amylase Lipase Serum , Qual Urine Color Urine Appearance Urine pH Ur Specific Parkin Urine Protein Urine Glucose (UA) Urine Ketones Urine Blood Urine Nitrite Urine Bilirubin Urine Urobilinogen Ur Leukocyte Esterase Urine WBC (Auto) Urine RBC (Auto) Urine Casts (Auto) U Epithel Cells (Auto) Urine Bacteria (Auto) Urine HCG, Qual 03/20/19 03/20/19 03/21/19 06:40 06:40 06:40 WBC 9.5 RBC 3.80 Hgb 11.2 Hct 33.3 MCV 87.6 MCH 29.4 MCHC 33.5 RDW 14.2 Plt Count 250 D MPV 11.1 Absolute Neuts (auto) 7.6 Neutrophils % 80.2 Lymphocytes % 10.3 Monocytes % 8.3 Eosinophils % 0.7 Basophils % 0.5 Nucleated RBC % 0 Platelet Estimate Platelet Comment PT with INR 15.30 H INR 1.29 H PTT (Actin FS) Sodium 142 Potassium 3.6 Chloride 112 H Carbon Dioxide 24 Anion Gap 6 L BUN 8.5 Creatinine 0.6 Est GFR (CKD-EPI)AfAm 138.80 Est GFR (CKD-EPI)NonAf 119.76 Random Glucose 96 Lactic Acid Calcium 7.4 L Magnesium 2.1 Total Bilirubin 0.7 AST 13 L ALT 20 Alkaline Phosphatase 84 Total Protein 6.0 L Albumin 2.9 L Total Amylase Lipase Serum , Qual Urine Color Urine Appearance Urine pH Ur Specific Parkin Urine Protein Urine Glucose (UA) Urine Ketones Urine Blood Urine Nitrite Urine Bilirubin Urine Urobilinogen Ur Leukocyte Esterase Urine WBC (Auto) Urine RBC (Auto) Urine Casts (Auto) U Epithel Cells (Auto) Urine Bacteria (Auto) Urine HCG, Qual 03/21/19 03/21/19 06:40 06:40 WBC RBC Hgb Hct MCV MCH MCHC RDW Plt Count MPV Absolute Neuts (auto) Neutrophils % Lymphocytes % Monocytes % Eosinophils % Basophils % Nucleated RBC % Platelet Estimate Platelet Comment PT with INR INR PTT (Actin FS) Sodium 141 Potassium 3.6 Chloride 112 H Carbon Dioxide 25 Anion Gap 5 L BUN 5.9 L Creatinine 0.5 L Est GFR (CKD-EPI)AfAm 147.38 Est GFR (CKD-EPI)NonAf 127.16 Random Glucose 107 H Lactic Acid Calcium 7.8 L Magnesium 2.1 Total Bilirubin 0.5 AST 13 L ALT 20 Alkaline Phosphatase 95 Total Protein 6.1 L Albumin 2.8 L Total Amylase 27 Lipase 66 L Serum , Qual Urine Color Urine Appearance Urine pH Ur Specific Parkin Urine Protein Urine Glucose (UA) Urine Ketones Urine Blood Urine Nitrite Urine Bilirubin Urine Urobilinogen Ur Leukocyte Esterase Urine WBC (Auto) Urine RBC (Auto) Urine Casts (Auto) U Epithel Cells (Auto) Urine Bacteria (Auto) Urine HCG, Qual Imaging - Results Chest X-ray: Report Reviewed Cat Scan: Report Reviewed Problem List - Problems (1) Pyelonephritis Code(s): N12 - TUBULO-INTERSTITIAL NEPHRITIS, NOT SPCF ACUTE OR CHRONIC (2) Sepsis Code(s): A41.9 - SEPSIS, UNSPECIFIED ORGANISM Qualifiers: Sepsis type: sepsis due to unspecified organism Qualified Code(s): A41.9 - Sepsis, unspecified organism (3) Renal colic on right side Code(s): N23 - UNSPECIFIED RENAL COLIC Assessment/Plan 33 y.o female with PMH of nephrolithiasis presenting with fever/leukocytosis, Rt flank/abd pain, n/v episodes Pyelonephritis s/p Sepsis Fever/Leukocytosis -- clinically proving, cultures neg so far -- afebrile today, wbc trended down to normal -- pain control -- if continue to improve, february d/c on Levaquin PO
[2019-03-22] MEDS: KETOROLAC TROMETHAMINE 15 MG/ML VIAL IVPUSH PRN (02:46)
[2019-03-22 07:02] LABS: BASO % 0.5 % (0-2.0); EOS % 1.9 % (0-4.5); HEMATOCRIT 34.1 % (32.4-45.2); HEMOGLOBIN 11.4 GM/dL (10.7-15.3); LYMPH % 17.8 % (8-40); MCH 29.2 pg (25.7-33.7); MCHC 33.6 g/dl (32.0-36.0); MEAN CELL VOLUME 86.9 fl (80-96); MEAN PLT VOLUME 10.4 fl (7.5-11.1); MONO % 11.2 % (3.8-10.2); NEUT % 68.6 % (42.8-82.8); RBC 3.92 M/mm3 (3.60-5.2); RDW 14.4 % (11.6-15.6)
[2019-03-22 07:24] LABS: ALBUMIN 2.6 g/dl (3.4-5.0); BILIRUBIN,TOTAL 0.4 mg/dL (0.2-1); BLOOD UREA NITROGEN 5.5 mg/dL (7-18); CALCIUM 7.8 mg/dL (8.5-10.1); CREATININE 0.5 mg/dL (0.55-1.3); MAGNESIUM 2.3 mg/dL (1.8-2.4); POTASSIUM 3.7 mmol/L (3.5-5.1)
[2019-03-22 10:30] LABS: PLATELET COUNT 198 K/MM3 (134-434)
[2019-03-22] MEDS ORDERED: cefTRIAXone SODIUM 1 GM VIAL ONE ×2 (10:48→10:50)
[2019-03-22] MEDS ORDERED: DEXTROSE 5%-WATER - 50 ML IVPB ONE (10:48)
[2019-03-22] MEDS: CEFTRIAXONE 1 GM in DEXTROSE 5%-WATER - 50 ML IVPB SCH (10:53)
[2019-03-22] MEDS: ACETAMINOPHEN 325 MG TABLET (FP) PO PRN (10:55)
--- NOTE | 2019-03-22 11:17 | DS ---
Physical Examination Vital Signs: Vital Signs Temperature 98.2 F 03/22/19 06:00 Pulse Rate 83 03/22/19 06:00 Respiratory Rate 20 03/22/19 06:00 Blood Pressure 107/61 03/22/19 06:00 O2 Sat by Pulse Oximetry (%) 100 03/21/19 21:00 Young F comfortable afebrile, HEENT:mm moist, no anemia, PERRLA EOMI NECK:No JVd No Bruit CHEST: CTA B/L CVS: S1S2 R ABD:No distention, non tender, BS + EXT:NO edema feet, no calf tenderness SUPERVISOR PHOTOSTAT:AOX3 non focal Labs: CBC, BMP 03/22/19 05:47 03/22/19 05:42 Discharge Summary Reason For Visit: PYELONEPHRITIS SEPSIS Current Active Problems Hepatic hemangioma (Acute) Prophylactic measure (Acute) Pyelonephritis (Acute) Sepsis (Acute) Hospital Course: 33 y.o. female with PMH of nephrolithiasis, previous UTIs, cholelithiasis, and asthma presents with c/o severe Rt lower abd/flank pain (10/10 intensity) and hematuria that began 3 days ago suddenly. Was started on macrobid as outpt but was having severe intermittent pain. Reports episodes of n/v and had been having chills. In the ER pt was noted to have temp of 102.8F and elevated wbc ( 17.2K) and CT A/P with non-obstructing renal stone. Currently she states she is feeling better, pain is better Hematuria is resolving. TWBC trended normal, afebrile U Culture -ve Ct showed small hemangioma , need to be reimaiged after 3 months, findings discussed with the patient to F/U with PMD. Patient is being DC on PO Augmentin for 5 days. Condition: Stable - Instructions Diet, Activity, Other Instructions: Regular PO Hydration You admitted with UTI with clinical sign of infection, your abd CT scan and Ultrasound shows small stones for that you should drink enough water and complete total 7 days of abx , your abd CT Scan also shows possible Hemangioma thta need Rpt abd ultrasound in 3 months as recommonded by the Radiologist, you should contact your PMDto arrange an out patient Hepatobilliary ultrasound in 3 months. Referrals: Mercy Dugan MD [Staff Physician] - 1 Week Disposition: HOME - Home Medications Comprehensive Discharge Medication List: Ambulatory Orders Acetaminophen [Tylenol .Regular Strength -] 650 mg PO Q4H PRN #30 tablet MDD 4 pills 03/22/19 Amoxicillin/Potassium Clav [Augmentin 875-125 Tablet] 1 each PO BID 5 Days #10 tablet MDD two 03/22/19 Simethicone [Mylicon -] 80 mg PO Q4H PRN #20 tab.chew 03/22/19
[2019-03-22 11:18] VITALS: BP 132/64; PULSE 109; TEMP 99.8
== END 2019-03-22 11:52 | disposition home or self-care (01) | DRG 720 ==
LOC: JER 12:06 → JERBED 16:28 → J5S 17:45
PROVIDERS: ADMIT Internal Medicine; ATTEND Internal Medicine
DX: A41.9 Sepsis, unspecified organism (principal); J45.909 Unspecified asthma, uncomplicated; N20.0 Calculus of kidney; K80.20 Calculus of gallbladder without cholecystitis without obstruction; N12 Tubulo-interstitial nephritis, not specified as acute or chronic; N39.0 Urinary tract infection, site not specified; I95.9 Hypotension, unspecified; D18.03 Hemangioma of intra-abdominal structures; N13.4 Hydroureter; D72.829 Elevated white blood cell count, unspecified
CPT/HCPCS: 36415; 71045-TC-FY; 74176-TC; 76705-TC; 80048; 80053; 81003; 82150; 83605; 83690; 83735; 84703; 85025; 85610; 85730; 87040; 87086; 93005; 93010; 99284-25; J0131; J7030